=== PATIENT | female | born 1970 | race African-American/Black ===

== ENCOUNTER 2022-12-16 09:52 | Inpatient (IN) | payer OTHER ==
[2022-12-16 10:41] VITALS: BMI 39.4
[2022-12-16] MEDS ORDERED: BISMUTH SUBSALICYLATE 524 MG/30 ML PO PRN (11:27)
[2022-12-16] MEDS ORDERED: DICYCLOMINE HCL 10 MG CAPSULE PO PRN (11:27)
[2022-12-16] MEDS ORDERED: NICOTINE POLACRILEX 4 MG GUM BUC PRN (11:27)
[2022-12-16] MEDS ORDERED: BENZOCAINE/MENTHOL (CHLORASEPTIC ) LOZENGE MM PRN (11:27)
[2022-12-16] MEDS ORDERED: NALOXONE HCL 0.4 MG/ML VIAL IM PRN (11:27)
[2022-12-16] MEDS ORDERED: ONDANSETRON *ODT* 4 MG TABLET SL PRN (11:27)
[2022-12-16] MEDS ORDERED: LORazepam 1 MG TABLET PO PRN (11:27)
[2022-12-16] MEDS ORDERED: COLLOIDAL OATMEAL 1 BAR EACH TP PRN (11:27)
[2022-12-16] MEDS ORDERED: ACETAMINOPHEN 325 MG TABLET (FP) PO PRN (11:27)
[2022-12-16] MEDS ORDERED: METHOCARBAMOL 500 MG TABLET PO PRN (11:27)
[2022-12-16] MEDS ORDERED: guaiFENesin 600 MG TABLET.ER (FP) PO PRN (11:27)
[2022-12-16] MEDS ORDERED: BENZONATATE 200 MG CAPSULE PO PRN (11:27)
[2022-12-16] MEDS ORDERED: LORazepam 2 MG TABLET PO ONE (11:27)
[2022-12-16] MEDS ORDERED: IBUPROFEN 600 MG TABLET (FP) PO PRN (11:27)
[2022-12-16] MEDS ORDERED: MAG HYDROX/AL HYDROX/SIMETH 30 ML UNIT-DOSE CUP PO PRN (11:27)
[2022-12-16] MEDS ORDERED: POLYETHYLENE GLYCOL (HEALTHYLAX) 3350 17 GM PACKET PO PRN (11:27)
[2022-12-16] MEDS ORDERED: NALOXONE HCL (KLOXXADO) 8 MG SPRAY NS PRN (11:27)
[2022-12-16] MEDS ORDERED: MAGNESIUM HYDROX 2400MG/30ML ORAL SUSPENSION 30 ML CUP PO PRN (11:27)
[2022-12-16] MEDS ORDERED: LOPERAMIDE HCL 2 MG CAPSULE PO PRN (11:27)
[2022-12-16] MEDS ORDERED: METHYL SALICYLATE/MENTHOL OINT 30 GM TUBE TP PRN (11:30)
[2022-12-16] MEDS ORDERED: LORazepam 2 MG TABLET ONE (11:59)
[2022-12-16] MEDS: PANTOPRAZOLE 40 MG TABLET PO SCH (12:30)
[2022-12-16] MEDS: LORazepam 2 MG TABLET PO SCH ×2 (17:48→22:47)
[2022-12-16] MEDS: THIAMINE HCL 100 MG TABLET (FP) PO SCH (22:46)
[2022-12-16] MEDS: BUPRENORPHINE/NALOXONE 8 MG/2 MG FILM PACKET SL SCH (22:46)
[2022-12-16] MEDS: MELATONIN 5 MG TABLETS PO SCH (22:47)
[2022-12-16] MEDS: ATORVASTATIN CA 20 MG TABLET (FP) PO SCH (22:47)
[2022-12-17] MEDS: LORazepam 2 MG TABLET PO SCH ×4 (05:55→22:44)
[2022-12-17] MEDS: PANTOPRAZOLE 40 MG TABLET PO SCH (10:58)
[2022-12-17] MEDS: PRENATAL VITAMINS W/ FOLIC ACID TABLET (FP) PO SCH (10:58)
[2022-12-17] MEDS: BUPRENORPHINE/NALOXONE 8 MG/2 MG FILM PACKET SL SCH ×2 (10:58→22:44)
[2022-12-17] MEDS: amLODIPine BESYLATE 10 MG TABLET (FP) PO SCH (10:58)
[2022-12-17] MEDS: THIAMINE HCL 100 MG TABLET (FP) PO SCH (22:44)
[2022-12-17] MEDS: MELATONIN 5 MG TABLETS PO SCH (22:44)
[2022-12-17] MEDS: ATORVASTATIN CA 20 MG TABLET (FP) PO SCH (22:44)
[2022-12-18] MEDS: LORazepam 1 MG TABLET PO SCH ×4 (05:39→22:39)
[2022-12-18] MEDS: ASPIRIN COATED 81 MG TABLET.EC PO SCH (10:45)
[2022-12-18] MEDS: PANTOPRAZOLE 40 MG TABLET PO SCH (10:45)
[2022-12-18] MEDS: PRENATAL VITAMINS W/ FOLIC ACID TABLET (FP) PO SCH (10:45)
[2022-12-18] MEDS: BUPRENORPHINE/NALOXONE 8 MG/2 MG FILM PACKET SL SCH ×2 (10:45→22:38)
[2022-12-18] MEDS: amLODIPine BESYLATE 10 MG TABLET (FP) PO SCH (10:45)
[2022-12-18] MEDS: ATORVASTATIN CA 20 MG TABLET (FP) PO SCH (22:38)
[2022-12-18] MEDS: THIAMINE HCL 100 MG TABLET (FP) PO SCH (22:40)
[2022-12-18] MEDS: MELATONIN 5 MG TABLETS PO SCH (22:40)
[2022-12-19] MEDS ORDERED: LORazepam 0.5 MG TABLET PO PRN
[2022-12-19] MEDS: LORazepam 0.5 MG TABLET PO SCH ×3 (05:45→16:47)
[2022-12-19] MEDS: PRENATAL VITAMINS W/ FOLIC ACID TABLET (FP) PO SCH (10:29)
[2022-12-19] MEDS: ASPIRIN COATED 81 MG TABLET.EC PO SCH (10:30)
[2022-12-19] MEDS: PANTOPRAZOLE 40 MG TABLET PO SCH (10:30)
[2022-12-19] MEDS: amLODIPine BESYLATE 10 MG TABLET (FP) PO SCH (10:30)
[2022-12-19] MEDS: BUPRENORPHINE/NALOXONE 8 MG/2 MG FILM PACKET SL SCH (10:30)
[2022-12-19] MEDS ORDERED: TOPIRAMATE 100 MG TABLET PO SCH (11:45)
[2022-12-19] MEDS ORDERED: SERTRALINE HCL 50 MG TABLET (FP) PO SCH (11:45)
[2022-12-19 12:59] VITALS: RESP 18
[2022-12-19 16:56] VITALS: BP 127/85; PULSE 81; TEMP 97.5
[2022-12-19] MEDS ORDERED: SUVOREXANT 10 MG TABLET PO PRN ×2 (22:00)
[2022-12-20] MEDS ORDERED: LORazepam 0.5 MG TABLET PO ONE (05:00)
== END 2022-12-19 17:52 | disposition other institution (70) | DRG 773 ==
LOC: YASAS 09:52 → Y6N 11:48 → Y5N 12-19 17:57 → Y6N 12-19 17:57
PROVIDERS: ADMIT Allergy & Immunology; ATTEND Surgery
PROC: HZ2ZZZZ Detoxification Services for Substance Abuse Treatment (ICD-10-PCS; principal; 2022-12-16)
DX: F10.230 Alcohol dependence with withdrawal, uncomplicated (principal); F11.20 Opioid dependence, uncomplicated; F14.20 Cocaine dependence, uncomplicated; F17.210 Nicotine dependence, cigarettes, uncomplicated; F19.282 Other psychoactive substance dependence with psychoactive substance-induced sleep disorder; F31.30 Bipolar disorder, current episode depressed, mild or moderate severity, unspecified; Z21 Asymptomatic human immunodeficiency virus [HIV] infection status; I10 Essential (primary) hypertension; K21.9 Gastro-esophageal reflux disease without esophagitis; E78.5 Hyperlipidemia, unspecified; M17.0 Bilateral primary osteoarthritis of knee; M19.011 Primary osteoarthritis, right shoulder; M19.012 Primary osteoarthritis, left shoulder; E66.9 Obesity, unspecified; Z68.39 Body mass index [BMI] 39.0-39.9, adult; R60.0 Localized edema; Z99.89 Dependence on other enabling machines and devices
CPT/HCPCS: 71045-TC-FY; 87635; 87811; 93005; 93010

== ENCOUNTER 2023-11-20 15:07 | Inpatient (IN) | payer OTHER ==
[2023-11-20 16:53] VITALS: BMI 39.1
[2023-11-20] MEDS ORDERED: DICYCLOMINE HCL 10 MG CAPSULE PO PRN (18:40)
[2023-11-20] MEDS ORDERED: BENZOCAINE/MENTHOL (CHLORASEPTIC ) LOZENGE MM PRN (18:40)
[2023-11-20] MEDS ORDERED: ACETAMINOPHEN 325 MG TABLET (FP) PO PRN (18:40)
[2023-11-20] MEDS ORDERED: P-EPHED 60MG/TRIPROLIDI 2.5MG TABLET PO PRN (18:40)
[2023-11-20] MEDS ORDERED: guaiFENesin 600 MG TABLET.ER (FP) PO PRN (18:40)
[2023-11-20] MEDS ORDERED: MAG HYDROX/AL HYDROX/SIMETH 30 ML UNIT-DOSE CUP PO PRN (18:40)
[2023-11-20] MEDS ORDERED: NALOXONE HCL 0.4 MG/ML VIAL IM PRN (18:40)
[2023-11-20] MEDS ORDERED: POLYETHYLENE GLYCOL (HEALTHYLAX) 3350 17 GM PACKET PO PRN (18:40)
[2023-11-20] MEDS ORDERED: NICOTINE POLACRILEX 2 MG GUM BUC PRN (18:40)
[2023-11-20] MEDS ORDERED: NALOXONE (NARCAN) HCL 4 MG/0.1 ML SPRAY NS PRN (18:40)
[2023-11-20] MEDS ORDERED: NICOTINE POLACRILEX 2 MG LOZENGE BC PRN (18:40)
[2023-11-20] MEDS ORDERED: BISMUTH SUBSALICYLATE 524 MG/30 ML PO PRN (18:40)
[2023-11-20] MEDS ORDERED: MAGNESIUM HYDROX 2400MG/30ML ORAL SUSPENSION 30 ML CUP PO PRN (18:40)
[2023-11-20] MEDS ORDERED: ONDANSETRON *ODT* 4 MG TABLET SL PRN (18:40)
[2023-11-20] MEDS ORDERED: LOPERAMIDE HCL 2 MG CAPSULE PO PRN (18:40)
[2023-11-20] MEDS ORDERED: IBUPROFEN 400 MG TABLET (FP) PO PRN (18:40)
[2023-11-20] MEDS ORDERED: BENZONATATE 200 MG CAPSULE PO PRN (18:40)
[2023-11-20] MEDS: ATORVASTATIN CA 20 MG TABLET (FP) PO SCH (22:34)
[2023-11-20] MEDS: MELATONIN 5 MG TABLETS PO SCH (22:34)
[2023-11-20] MEDS: METHOCARBAMOL 500 MG TABLET PO PRN (22:34)
[2023-11-20] MEDS: THIAMINE 100 MG TABLET PO SCH (22:34)
[2023-11-21] MEDS: PRENATAL VITAMINS W/ FOLIC ACID TABLET (FP) PO SCH (09:57)
[2023-11-21] MEDS: PANTOPRAZOLE 40 MG TABLET PO SCH (09:57)
[2023-11-21] MEDS: BUPRENORPHINE/NALOXONE 8 MG/2 MG FILM PACKET SL SCH (09:57)
[2023-11-21] MEDS: amLODIPine BESYLATE 10 MG TABLET (FP) PO SCH (09:57)
[2023-11-21] MEDS: ASPIRIN COATED 81 MG TABLET.EC PO SCH (09:57)
[2023-11-21] MEDS ORDERED: TOPIRAMATE 100 MG TABLET PO SCH (10:15)
[2023-11-21] MEDS: SERTRALINE HCL 50 MG TABLET (FP) PO SCH (10:47)
[2023-11-21] MEDS: TOPIRAMATE 100 MG, TOPIRAMATE 50 MG PO SCH (10:47)
[2023-11-21] MEDS ORDERED: LORazepam 1 MG TABLET PO PRN (11:36)
[2023-11-21] MEDS: DICLOFENAC SODIUM 1 GM TP PRN (12:19)
[2023-11-21] MEDS: IBUPROFEN 600 MG TABLET (FP) PO PRN (12:21)
[2023-11-21] MEDS: PATIENT'S OWN MEDICATION (NON-FORMULARY) (Diclofenac Sodium 0.01 MG/MG Gel) TP SCH (12:24)
[2023-11-21] MEDS: LORazepam 2 MG TABLET PO SCH (17:59)
[2023-11-21] MEDS: SUVOREXANT 10 MG TABLET PO PRN (22:51)
[2023-11-23] MEDS: LORazepam 1 MG TABLET PO SCH (05:40)
[2023-11-24] MEDS ORDERED: LORazepam 0.5 MG TABLET PO PRN
[2023-11-24] MEDS: LORazepam 0.5 MG TABLET PO SCH (06:06)
[2023-11-24] MEDS: BUPRENORPHINE/NALOXONE 8 MG/2 MG FILM PACKET SL ONE (11:45)
[2023-11-25] MEDS: LORazepam 0.5 MG TABLET PO ONE (06:20)
[2023-11-26] MEDS ORDERED: DICLOFENAC 75 MG PO PRN (14:33)
[2023-11-26] MEDS ORDERED: DICLOFENAC 75 MG PO SCH (22:00)
[2023-11-26] MEDS: CYCLOBENZAPRINE HCL 10 MG PO SCH (22:25)
[2023-11-27 09:04] VITALS: BP 120/78; PULSE 78; RESP 18; TEMP 97.7
[2023-11-27] MEDS: PREGABALIN 75 MG CAPSULE PO SCH (09:47)
[2023-11-27] MEDS: PATIENT'S OWN MEDICATION (NON-FORMULARY) (Omeprazole 40 MG) PO SCH (09:47)
== END 2023-11-27 13:09 | disposition other institution (70) | DRG 773 ==
LOC: YASAS 15:07 → Y6N 19:32 → UNDOADMIN 19:32 → Y6N 11-21 11:36
PROVIDERS: ADMIT Allergy & Immunology; ATTEND Surgery
PROC: HZ2ZZZZ Detoxification Services for Substance Abuse Treatment (ICD-10-PCS; principal; 2023-11-21)
DX: F10.230 Alcohol dependence with withdrawal, uncomplicated (principal); F11.20 Opioid dependence, uncomplicated; F14.20 Cocaine dependence, uncomplicated; F17.210 Nicotine dependence, cigarettes, uncomplicated; F19.282 Other psychoactive substance dependence with psychoactive substance-induced sleep disorder; F19.24 Other psychoactive substance dependence with psychoactive substance-induced mood disorder; F41.9 Anxiety disorder, unspecified; F32.A Depression, unspecified; Z21 Asymptomatic human immunodeficiency virus [HIV] infection status; E78.00 Pure hypercholesterolemia, unspecified; I10 Essential (primary) hypertension; K21.9 Gastro-esophageal reflux disease without esophagitis; M15.9 Polyosteoarthritis, unspecified; Z62.810 Personal history of physical and sexual abuse in childhood; Z63.8 Other specified problems related to primary support group; Z99.89 Dependence on other enabling machines and devices; Z86.19 Personal history of other infectious and parasitic diseases
CPT/HCPCS: 80305; 80307; 81025; 87811; 93005; 93010

== ENCOUNTER 2023-11-27 13:11 | Inpatient (IN) | payer OTHER ==
[2023-11-27] MEDS ORDERED: METHOCARBAMOL 500 MG TABLET PO PRN (14:05)
[2023-11-27] MEDS ORDERED: guaiFENesin 600 MG TABLET.ER (FP) PO PRN (14:05)
[2023-11-27] MEDS ORDERED: IBUPROFEN 400 MG TABLET (FP) PO PRN (14:05)
[2023-11-27] MEDS ORDERED: NALOXONE (NARCAN) HCL 4 MG/0.1 ML SPRAY NS PRN (14:05)
[2023-11-27] MEDS ORDERED: NICOTINE POLACRILEX 4 MG LOZENGE BC PRN (14:05)
[2023-11-27] MEDS ORDERED: IBUPROFEN 600 MG TABLET (FP) PO PRN (14:05)
[2023-11-27] MEDS ORDERED: POLYETHYLENE GLYCOL (HEALTHYLAX) 3350 17 GM PACKET PO PRN (14:05)
[2023-11-27] MEDS ORDERED: LOPERAMIDE HCL 2 MG CAPSULE PO PRN (14:05)
[2023-11-27] MEDS ORDERED: NALOXONE HCL 0.4 MG/ML VIAL IVPUSH PRN (14:05)
[2023-11-27] MEDS ORDERED: BENZONATATE 200 MG CAPSULE PO PRN (14:05)
[2023-11-27] MEDS ORDERED: ACETAMINOPHEN 325 MG TABLET (FP) PO PRN (14:05)
[2023-11-27] MEDS ORDERED: MAG HYDROX/AL HYDROX/SIMETH 30 ML UNIT-DOSE CUP PO PRN (14:05)
[2023-11-27] MEDS ORDERED: BENZOCAINE/MENTHOL (CHLORASEPTIC ) LOZENGE MM PRN (14:05)
[2023-11-27] MEDS ORDERED: NICOTINE POLACRILEX 4 MG GUM BUC PRN (14:05)
[2023-11-27] MEDS ORDERED: MAGNESIUM HYDROX 2400MG/30ML ORAL SUSPENSION 30 ML CUP PO PRN (14:05)
[2023-11-27] MEDS ORDERED: PATIENT'S OWN MEDICATION (NON-FORMULARY) (Diclofenac Sodium 0.01 MG/MG Gel) TP SCH ×2 (14:15→15:25)
[2023-11-27] MEDS: PATIENT'S OWN MEDICATION (NON-FORMULARY) (Diclofenac Sodium 0.01 MG/MG Gel) TP SCH (15:49)
[2023-11-27] MEDS: ATORVASTATIN CA 20 MG TABLET (FP) PO SCH (21:18)
[2023-11-27] MEDS: CYCLOBENZAPRINE HCL 10 MG TABLET (FP) PO SCH (21:18)
[2023-11-27] MEDS: MELATONIN 5 MG TABLETS PO SCH (21:18)
[2023-11-27] MEDS: BUPRENORPHINE/NALOXONE 8 MG/2 MG FILM PACKET SL SCH (21:18)
[2023-11-27] MEDS: THIAMINE 100 MG TABLET PO SCH (21:18)
[2023-11-27] MEDS: hydrOXYzine PAMOATE 25 MG CAPSULE (FP) PO PRN (21:20)
[2023-11-28] MEDS ORDERED: TOPIRAMATE 100 MG TABLET PO SCH (10:00)
[2023-11-28] MEDS: ASPIRIN 81 MG CHEWABLE TABLETS PO SCH (10:19)
[2023-11-28] MEDS: PREGABALIN 75 MG CAPSULE PO SCH (10:19)
[2023-11-28] MEDS: PRENATAL VITAMINS W/ FOLIC ACID TABLET (FP) PO SCH (10:19)
[2023-11-28] MEDS: SERTRALINE HCL 50 MG TABLET (FP) PO SCH (10:19)
[2023-11-28] MEDS: PANTOPRAZOLE 40 MG TABLET PO SCH (10:19)
[2023-11-28] MEDS: NICOTINE 7 MG/24 HOURS TOPICAL PATCH TD SCH (10:20)
[2023-11-28] MEDS: amLODIPine BESYLATE 10 MG TABLET (FP) PO SCH (10:20)
[2023-11-28] MEDS: TOPIRAMATE 100 MG, TOPIRAMATE 50 MG PO SCH (10:23)
[2023-11-28] MEDS ORDERED: DICYCLOMINE HCL 10 MG CAPSULE PO PRN (15:47)
[2023-11-28] MEDS ORDERED: BISMUTH SUBSALICYLATE 524 MG/30 ML PO PRN (15:47)
[2023-11-29] MEDS: PANTOPRAZOLE 40 MG TABLET PO SCH (06:45)
[2023-11-29] MEDS: PATIENT'S OWN MEDICATION (NON-FORMULARY) (Omeprazole 40 MG) PO SCH (10:39)
[2023-11-29 11:41] LABS: BASO % 1.2 % (0-2.0); HEMATOCRIT 36.7 % (32.4-45.2); HEMOGLOBIN 11.6 GM/dL (10.7-15.3); LYMPH % 36.2 % (8-40); MCH 26.7 pg (25.7-33.7); MCHC 31.6 g/dl (32.0-36.0); MEAN CELL VOLUME 84.3 fl (80-96); MEAN PLT VOLUME 8.1 fl (7.5-11.1); MONO % 10.7 % (3.8-10.2); NEUT % 47.9 % (42.8-82.8); PLATELET COUNT 324 10^3/uL (134-434); RBC 4.36 M/mm3 (3.60-5.2); RDW 16.6 % (11.6-15.6)
[2023-11-29 11:49] LABS: INR 0.85 (0.83-1.09); PROTHROMBIN TIME (PATIENT) 9.7 SEC (9.7-13.0)
[2023-11-29 12:04] LABS: POTASSIUM 4.4 mmol/L (3.5-5.1)
[2023-11-29 12:11] LABS: CALCIUM 8.3 mg/dL (8.5-10.1)
[2023-11-29 12:12] LABS: ALBUMIN 2.9 g/dl (3.4-5.0); BLOOD UREA NITROGEN 29.3 mg/dL (7-18)
[2023-11-29 12:16] LABS: TOT PROT 5.8 g/dl (6.4-8.2)
[2023-11-29 12:18] LABS: CREATININE 0.8 mg/dL (0.55-1.3)
[2023-11-29 12:19] LABS: BILIRUBIN,TOTAL 0.2 mg/dL (0.2-1)
[2023-11-29] MEDS: SUVOREXANT 10 MG TABLET PO PRN (21:49)
[2023-12-01] MEDS: TOPIRAMATE 100 MG, TOPIRAMATE 50 MG PO SCH (21:46)
[2023-12-04] MEDS: SUVOREXANT 15 MG TABLET PO PRN (21:11)
[2023-12-05] MEDS: BACLOFEN 10 MG TABLET (FP) PO SCH (21:40)
[2023-12-06] MEDS: SUVOREXANT 15 MG TABLET PO PRN (22:18)
[2023-12-09] MEDS: SUVOREXANT 15 MG TABLET PO PRN (21:05)
[2023-12-10 06:40] VITALS: TEMP 97.3
[2023-12-11 06:58] VITALS: RESP 18
[2023-12-11 09:27] VITALS: BP 133/91; PULSE 91
== END 2023-12-11 12:25 | disposition home or self-care (01) | DRG 772 ==
LOC: YASAS 13:11 → Y5N 13:13
PROVIDERS: ADMIT Allergy & Immunology; ATTEND Psychiatry & Neurology Pain Medicine
PROC: HZ42ZZZ Group Counseling for Substance Abuse Treatment, Cognitive-Behavioral (ICD-10-PCS; principal; 2023-11-27)
DX: F10.20 Alcohol dependence, uncomplicated (principal); F14.20 Cocaine dependence, uncomplicated; F17.210 Nicotine dependence, cigarettes, uncomplicated; F31.9 Bipolar disorder, unspecified; F19.282 Other psychoactive substance dependence with psychoactive substance-induced sleep disorder; F19.24 Other psychoactive substance dependence with psychoactive substance-induced mood disorder; Z21 Asymptomatic human immunodeficiency virus [HIV] infection status; E78.5 Hyperlipidemia, unspecified; I10 Essential (primary) hypertension; J02.9 Acute pharyngitis, unspecified; K21.9 Gastro-esophageal reflux disease without esophagitis; M17.12 Unilateral primary osteoarthritis, left knee; M25.561 Pain in right knee; M25.562 Pain in left knee; G89.29 Other chronic pain; Z99.89 Dependence on other enabling machines and devices
CPT/HCPCS: 0241U-QW; 36415; 80053; 82140; 82652; 83735; 85025; 85610; 86593; 86780; 86803; J0475